=== PATIENT | female | born 1995 | race African-American/Black ===

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

== ENCOUNTER 2017-01-19 10:35 | Emergency (ER) | payer SELFPAY ==
[~2017-01-19] VITALS: Ht 165.1 cm; Wt 72.6 kg
[~2017-01-19 10:35] MED LIST: NITR100C62 PO
[2017-01-19 10:42] VITALS: BP 123/81
--- NOTE | 2017-01-19 11:38 | RAD ---
Indication persistent pain associated with an injury one week ago. AP oblique and lateral views of the left knee were obtained. No bony abnormality is seen
[2017-01-19] MEDS ORDERED: NAPR500T8 PO (12:07)
--- NOTE | 2017-01-19 12:09 | PHYS DOC ---
Past Medical History Past Medical History: Other Additional Past Medical Histor: sickle cell trait, ovarian cyst Past Surgical History: No Surgical History Alcohol Use: None Drug Use: None Adult General Chief Complaint Chief Complaint: ANKLE PROBLEM HPI HPI Patient is a 21 year old female who presents with left lateral ankle pain that began one week ago after she rolled her ankle. Patient states she has worked a couple long hours shifts that has exacerbated the pain. Review of Systems Review of Systems Constitutional: Denies fever or chills [] Eyes: Denies change in visual acuity, redness, or eye pain [] Musculoskeletal: left ankle pain Integument: Denies rash or skin lesions [] Neurologic: Denies headache, focal weakness or sensory changes [] Endocrine: Denies polyuria or polydipsia [] Allergies Allergies Allergies Coded Allergies Type Severity Reaction Last Updated Verified No Known Drug Allergies 10/17/16 No Physical Exam Physical Exam Constitutional: Well developed, well nourished, no acute distress, non-toxic appearance. [] HENT: Normocephalic, atraumatic, bilateral external ears normal, oropharynx moist, no oral exudates, nose normal. [] Abdomen: Bowel sounds normal, soft, no tenderness, no masses, no pulsatile masses. [] Skin: Warm, dry, no erythema, no rash. [] Back: No tenderness, no CVA tenderness. [] Extremities: Left ankle with mild soft tissue swelling on the lateral aspect. Tenderness on palpation of the left lateral ankle. Full range of motion to the left ankle and toes. +2 left pedal pulse. Cap refill less than 2 seconds the left lower extremity. Sensation intact to the left lower extremity. Neurologic: Alert and oriented X 3, normal motor function, normal sensory function, no focal deficits noted. [] Psychologic: Affect normal, judgement normal, mood normal. [] Current Patient Data Vital Signs Vital Signs Date Time Temp Pulse Resp B/P (MAP) Pulse Ox O2 Delivery O2 Flow Rate FiO2 01/19/17 10:42 98.2 78 18 98 Room Air 98.2 EKG EKG [] Radiology/Procedures Radiology/Procedures []PROCEDURE: ANKLE LEFT 3V Indication persistent pain associated with an injury one week ago. AP oblique and lateral views of the left knee were obtained. No bony abnormality is seen DICTATED and SIGNED BY: AMBAR DESAI MD DATE: 01/19/17 1645 CC: MARCIN FRANCO; BIANCA MAS APRN; NON,STAFF ~ Course & Med Decision Making Course & Med Decision Making Pertinent Labs and Imaging studies reviewed. (See chart for details) Patient is in the ED with left lateral ankle pain after falling a week ago. Left ankle x-rays interpreted by radiologist are negative for any acute findings. Patient has left ankle sprain. Ice elevation encouraged. Follow-up with orthopedic doctor in one week. Naproxen for pain. Dragon Disclaimer Dragon Disclaimer This electronic medical record was generated, in whole or in part, using a voice recognition dictation system. Departure Departure Impression: Primary Impression: Left ankle sprain Disposition: HOME, SELF-CARE Condition: STABLE Referrals: MARCIN FRANCO (PCP) NICKI BARRY MD follow up in one week with the orthopedic doctor provided Patient Instructions: Ankle Sprain Additional Instructions: You were seen for left ankle sprain. Ice and elevate the extremity. Wear the air cast as needed and tolerated. Follow-up with the provided orthopedic doctor by calling his office in one week if pain continues to get a follow-up appointment. Scripts Naproxen (NAPROXEN) 500 Mg Tablet.dr 1 TAB PO BID, #60 TAB 2 Refills Prov: BIANCA MAS APRN 01/19/17 Problem Qualifiers Primary Impression: Left ankle sprain Encounter type: initial encounter Involved ligament of ankle: unspecified ligament Qualified Codes: S93.402A - Sprain of unspecified ligament of left ankle, initial encounter BIANCA MAS APRN Jan 19, 2017 12:09
== END 2017-01-19 12:21 | disposition home or self-care (01) ==
LOC: ER 10:35
DX: S93.402A Sprain of unspecified ligament of left ankle, initial encounter (principal); Z86.2 Personal history of diseases of the blood and blood-forming organs and certain disorders involving the immune mechanism; X50.9XXA Other and unspecified overexertion or strenuous movements or postures, initial encounter; Y93.89 Activity, other specified; Y99.8 Other external cause status; Y92.89 Other specified places as the place of occurrence of the external cause
CPT/HCPCS: 73610; 99284-25